=== PATIENT | female | born 1945 | race Caucasian/White ===

== ENCOUNTER → 2016-11-23 | Outpatient (CLI) | payer MEDICARE, OTHER ==
[~2016-11-23] MED LIST: BUPR300T PO; CIPR500T4 PO; FLUO20CA25 PO; LANS15CA PO; LORA0.5T PO; MELA1TAB11 PO; METR500T21 PO; SIMV40TA4 PO
--- NOTE | 2016-11-25 13:54 | Diagnostic Imaging Report ---
Bilateral screening mammogram. The current study was also evaluated with a Computer Aided Detection (CAD) system. INDICATION: Screening. No current complaints stated on the questionnaire. COMPARISON: 06/05/2014. FINDINGS: The breasts are composed of heterogeneously dense parenchyma which may decrease mammographic sensitivity. There is no mass, architectural distortion, or suspicious microcalcification. Allowing for technique and positional differences, no suspicious change is seen. IMPRESSION: Dense breasts with no definite change. ACR BI-RADS Category 2: Benign findings. Result letter will be mailed to the patient. Note: At least 10% of breast cancer is not imaged by mammography. Dictated by: Dictated on workstation # [id number]
== END ==
LOC: RAD 09:40
PROVIDERS: ATTEND Nurse Practitioner Family
DX: Z12.31 Encounter for screening mammogram for malignant neoplasm of breast (principal)

== ENCOUNTER → 2016-11-24 | Outpatient (CLI) | payer MEDICARE, OTHER ==
--- NOTE | 2016-11-24 10:43 | Diagnostic Imaging Report ---
PROCEDURE: US Gallbladder. TECHNIQUE: Multiple real-time grayscale images were obtained over the right upper quadrant in various projections. INDICATION: Right upper quadrant pain. FINDINGS: The pancreas is largely obscured. The liver is fairly homogeneous with no focal lesion. There is hepatopetal flow in the portal vein seen. The gallbladder demonstrates no stones or wall thickening. No pericholecystic fluid is seen. Sonographic Bronson's sign is reportedly negative. There is no fluid collection in the upper right abdomen. The CBD is 4 mm in caliber. IMPRESSION: Unremarkable exam. Dictated by: Dictated on workstation # [id number]
== END ==
LOC: RAD 08:59
PROVIDERS: ATTEND Nurse Practitioner Family
DX: R10.11 Right upper quadrant pain (principal); R19.7 Diarrhea, unspecified
CPT/HCPCS: 76705

== ENCOUNTER → 2017-06-29 | Outpatient (CLI) | payer MEDICARE, OTHER ==
--- NOTE | 2017-06-29 13:35 | Diagnostic Imaging Report ---
PROCEDURE: MRI left upper extremity without contrast. TECHNIQUE: Multiplanar, multisequence non contrast-enhanced MRI of the left upper extremity was accomplished. INDICATION: Shoulder pain. COMPARISON: There are no previous studies available for comparison. FINDINGS: On the coronal T2 fat-saturated series, there is a small area of abnormal signal along the anterior-most insertion of the rotator cuff. This does suggest a small rim rent tear. The supraspinatus muscle itself is not retracted or bunched, however. There is hypertrophy of the acromioclavicular joint, but there does not appear to be any significant narrowing of the outlet for the supraspinatus muscle. The labrum is thinned anteriorly and may be torn on a degenerative basis. There is no acute labral tear identified. The biceps tendon and the subscapularis tendon are intact. There is no abnormal signal arising from the osseous structures to suggest bone edema or a fracture. There is mild cystic degenerative disease of the greater tuberosity. There is a small joint effusion present. There is also a collection of fluid in the bursa anterior to the scapula. This fluid collection measures approximately 1.6 x 2.2 x 4.0 CM in maximum longitudinal AP and transverse dimensions. There are also two fairly well-circumscribed defects within the medial-most portion of the fluid. These could represent small calcifications. IMPRESSION: 1. There is a small rim rent tear of the anterior insertion of the rotator cuff. The supraspinatus muscle itself is not retracted or bunched. 2. There is mild hypertrophy of the acromioclavicular joint, but there is no narrowing of the outlet for the supraspinatus muscle. 3. The labrum is thinned and most likely torn on a degenerative basis. 4. There is no acute bony abnormality identified. 5. There is a small joint effusion, and there is fluid in the bursa anterior to the shoulder joint. There may be a few small calcifications within the fluid collection as well. Dictated by: Dictated on workstation # [id number]
== END ==
LOC: RAD 08:12
PROVIDERS: ATTEND Orthopaedic Surgery
DX: M25.512 Pain in left shoulder (principal)
CPT/HCPCS: 73221

== ENCOUNTER 2017-12-15 10:55 | Outpatient (RCR) | payer MEDICARE, OTHER | END 2017-12-15 13:55 | disposition home or self-care (01) | PROVIDERS: ATTEND Orthopaedic Surgery | DX: Z47.89 Encounter for other orthopedic aftercare (principal) ==

== ENCOUNTER 2018-07-15 10:23 | Emergency (ER) | payer MEDICARE, OTHER ==
[~2018-07-15] VITALS: Ht 157.5 cm; Wt 78.9 kg
[2018-07-15 11:19] LABS: BILIRUBIN,URINE NEGATIVE (NEGATIVE); CLARITY,URINE SLIGHTLY CLOUDY; COLOR,URINE YELLOW; GLUCOSE, URINE (UA) NEGATIVE (NEGATIVE); KETONES,URINE NEGATIVE (NEGATIVE); LEUKOCYTE ESTERASE ,URINE 2+ (NEGATIVE); NITRITE,URINE NEGATIVE (NEGATIVE); PH,URINE 8 (5-9); PROTEIN,URINE NEGATIVE (NEGATIVE); UROBILINOGEN,URINE NORMAL (NORMAL)
[2018-07-15] MEDS ORDERED: KETOROLAC 30 MG/ML VIAL IM ONE (11:30)
[2018-07-15 11:39] LABS: AMORPHOUS SEDIMENT,UR MOD AMOR PHOSPHATE /LPF; BACTERIA,URINE MODERATE /HPF; RBC,URINE RARE /HPF
[2018-07-15] MEDS ORDERED: ONDANSETRON 4 MG/2 ML (SDV) Z0FRAN IVP ONE (11:45)
--- NOTE | 2018-07-15 11:52 | ED Back Pain ---
General Chief Complaint: Back Problems Stated Complaint: POSS KIDNEY STONE,L SIDE ABD PAIN STARTED 2HRS AGO Nursing Triage Note: Patient presents to ER via wheelchair with complaint of left flank pain that began suddenly approximately 2 and 1/2 hours ago. Patient is also complaining of nausea. Patient took a tramadol approximately 45 minutes ago and states it is helping to relieve the pain. Nursing Sepsis Screen: No Definite Risk Source of Information: Patient, Spouse Exam Limitations: No Limitations History of Present Illness Date Seen by Provider: Jul 15, 2018 Time Seen by Provider: 11:37 Initial Comments The patient presents to the ER by private conveyance with her spouse and chief complaint that this morning around 8:30 she started to have severe, gripping, sharp pain near her left kidney radiating down her left flank and into her left groin all the way to her urethra. She's not having any dysuria prior to that. She says it's causing a little nausea but she's not vomited yet. She is never had a kidney stone before. Having regular bowel movements. Her had kidney stones before she says this might of her of his episodes. She took a tramadol which briefly helped with the pain. She's had her appendix and uterus surgically removed. She has no shortness of breath, cough or worsening pain on deep inspiration. Allergies and Home Medications Allergies Coded Allergies: No Known Drug Allergies (Unverified , 01/10/14) Home Medications Bupropion Hcl 300 Mg Tab.sr.24h, 1 TAB PO DAILY, (Reported) Ciprofloxacin HCl 500 Mg Tablet, 500 MG PO BID Prescribed by: KAYLEEN RUELAS on 03/28/162108 Fluoxetine Hcl 20 Mg Capsule, 1 EACH PO DAILY, (Reported) Lansoprazole 15 Mg Capsule.dr, 15 MG PO DAILY, (Reported) Lorazepam 0.5 Mg Tablet, 0.5 MG PO DAILY, (Reported) Metronidazole 500 Mg Tablet, 500 MG PO BID Prescribed by: KAYLEEN RUELAS on 03/28/162108 Pyridoxine/Melatonin 1 Tab Tablet, 1 TAB PO DAILY, (Reported) Simvastatin 40 Mg Tablet, 40 MG PO DAILY, (Reported) Patient Home Medication List Home Medication List Reviewed: Yes Review of Systems Constitutional: No chills, No diaphoresis EENTM: No ear discharge, No hearing loss Respiratory: No cough, No dyspnea on exertion Cardiovascular: No chest pain, No palpitations Gastrointestinal: see HPI, nausea; No vomiting Genitourinary: No decreased output, No discharge, No dysuria Musculoskeletal: No back pain, No joint pain Past Tnkrxau-Solhhq-Fnektj Hx Patient Social History Alcohol Use: Denies Use Recreational Drug Use: No Smoking Status: Never a Smoker 2nd Hand Smoke Exposure: No Recent Foreign Travel: No Contact w/Someone Who Travel: No Recent Infectious Disease Expo: No Recent Hopitalizations: No Seasonal Allergies Seasonal Allergies: No Past Medical History Surgeries: Yes (cataracts, carpal tunnel, D & C) Appendectomy, Hysterectomy, Tonsillectomy Respiratory: No Cardiac: No Neurological: No [employer] History: Hysterectomy Sexually Transmitted Disease: No Genitourinary: Yes Kidney Stones Gastrointestinal: No Musculoskeletal: No Endocrine: No HEENT: Yes Cataract Cancer: No Psychosocial: No Integumentary: No Blood Disorders: No Family Medical History No Pertinent Family Hx Physical Exam Vital Signs Vital Signs - First Documented 07/15/18 10:53 Temp 97.7 Pulse 76 Resp 16 B/P (MAP) 134/88 (103) O2 Delivery Room Air Capillary Refill : Less Than 3 Seconds Height, Weight, BMI Height: 5'2.00" Weight: 174lbs. oz. 78.233323cj; BMI Method:Stated General Appearance: Anxious, Moderate Distress HEENT: PERRL/EOMI, Pharynx Normal, Moist Mucous Membranes Cardiovascular: Regular Rate, Rhythm, Normal Peripheral Pulses Respiratory: Chest Non Tender, Lungs Clear, No Accessory Muscle Use, No Respiratory Distress Gastrointestinal: Normal Bowel Sounds, Non Tender, Soft Back: CVA Tenderness (L) (tender to percussion); No Vertebral Tenderness Extremity: Normal Capillary Refill, Non Tender Neurologic/Psychiatric: Alert, Oriented x3 Progress/Results/Core Measures Results/Orders Lab Results Laboratory Tests Test 07/15/18 11:08 07/15/18 11:56 Range/Units Urine Color YELLOW Urine Clarity SLIGHTLY CLOUDY Urine pH 8 5-9 Urine Specific [place] 1.010 L 1.016-1.022 Urine Protein NEGATIVE NEGATIVE Urine Glucose (UA) NEGATIVE NEGATIVE Urine Ketones NEGATIVE NEGATIVE Urine Nitrite NEGATIVE NEGATIVE Urine Bilirubin NEGATIVE NEGATIVE Urine Urobilinogen NORMAL NORMAL MG/DL Urine Leukocyte Esterase 2+ H NEGATIVE Urine RBC (Auto) 2+ H NEGATIVE Urine RBC RARE /HPF Urine WBC 2-5 /HPF Urine Squamous Epithelial Cells 5-10 /HPF Urine Crystals NONE /LPF Urine Amorphous Sediment MOD DAMION PHOSPHATE H /LPF Urine Bacteria MODERATE H /HPF Urine Casts NONE /LPF Urine Mucus NEGATIVE /LPF Urine Culture Indicated NO White Blood Count 5.9 4.3-11.0 10^3/uL Red Blood Count 4.45 4.35-5.85 10^6/uL Hemoglobin 13.4 11.5-16.0 G/DL Hematocrit 39 35-52 % Mean Corpuscular Volume 89 80-99 FL Mean Corpuscular Hemoglobin 30 25-34 PG Mean Corpuscular Hemoglobin Concent 34 32-36 G/DL Red Cell Distribution Width 13.2 10.0-14.5 % Platelet Count 234 130-400 10^3/uL Mean Platelet Volume 9.0 7.4-10.4 FL Neutrophils (%) (Auto) 71 42-75 % Lymphocytes (%) (Auto) 19 12-44 % Monocytes (%) (Auto) 9 0-12 % Eosinophils (%) (Auto) 1 0-10 % Basophils (%) (Auto) 1 0-10 % Neutrophils # (Auto) 4.2 1.8-7.8 X 10^3 Lymphocytes # (Auto) 1.1 1.0-4.0 X 10^3 Monocytes # (Auto) 0.5 0.0-1.0 X 10^3 Eosinophils # (Auto) 0.1 0.0-0.3 10^3/uL Basophils # (Auto) 0.0 0.0-0.1 10^3/uL Sodium Level 139 135-145 MMOL/L Potassium Level 4.4 3.6-5.0 MMOL/L Chloride Level 108 H 98-107 MMOL/L Carbon Dioxide Level 18 L 21-32 MMOL/L Anion Gap 13 5-14 MMOL/L Blood Urea Nitrogen 22 H 7-18 MG/DL Creatinine 1.19 0.60-1.30 MG/DL Estimat Glomerular Filtration Rate 45 BUN/Creatinine Ratio 18 Glucose Level 134 H 70-105 MG/DL Calcium Level 9.6 8.5-10.1 MG/DL Corrected Calcium 9.2 8.5-10.1 MG/DL Total Bilirubin 0.4 0.1-1.0 MG/DL Aspartate Amino Transf (AST/SGOT) 16 5-34 U/L Alanine Aminotransferase (ALT/SGPT) 22 0-55 U/L Alkaline Phosphatase 115 40-136 U/L Total Protein 6.8 6.4-8.2 GM/DL Albumin 4.5 3.2-4.5 GM/DL My Orders Orders - LAYNE HICKS Ua Culture If Indicated (07/15/18 10:27) Ketorolac Injection (Toradol Injection) (07/15/18 11:30) Ct Abd/Pelvis Wo(Kidney Stone) (07/15/18 11:43) Cbc With Automated Diff (07/15/18 11:43) Comprehensive Metabolic Panel (07/15/18 11:43) Ondansetron Injection (Zofran Injectio (07/15/18 11:45) Medications Given in ED Current Medications Medications Dose Ordered Sig/Yosef Route Start Time Stop Time Status Last Admin Dose Admin Ketorolac Tromethamine 30 mg ONCE ONCE IM 07/15/18 11:30 07/15/18 11:31 DC 07/15/18 11:26 30 MG Ondansetron HCl 4 mg ONCE ONCE IVP 07/15/18 11:45 07/15/18 11:48 DC 07/15/18 12:00 4 MG Vital Signs/I&O 07/15/18 10:53 Temp 97.7 Pulse 76 Resp 16 B/P (MAP) 134/88 (103) O2 Delivery Room Air Blood Pressure Mean: 103 Progress Progress Note : Time: 11:51 Progress Note Fully rare blood seen in her urinalysis but this doesn't rule out a kidney stone. We'll get a CT without contrast of her abdomen but we'll add some labs. Vitals were aseptic. 10 minutes after receiving the Toradol she's starting to feel the edge of her pain come off. We'll give her some Zofran as well. Diagnostic Imaging Diagonstic Imaging: CT (without contrast) Plain Films/CT/US/NM/MRI: abdomen, pelvis Comments VIA [facility]. [place], [place] NAME: ADIEL ALEXANDER MED REC#: [id number] PT STATUS: REG ER : 1945 PHYSICIAN: LAYNE HICKS MD ADMIT DATE: 07/15/18/ER Draft Date of Exam:07/15/18 CT ABD/PELVIS WO(KIDNEY STONE) PROCEDURE: CT urinary tract, rule out kidney stone. TECHNIQUE: Multiple contiguous axial images were obtained through the abdomen and pelvis without the use of intravenous contrast. INDICATION: Left flank pain. Comparison with 03/28/2016. FINDINGS: Lung bases are clear. Large cyst is again noted off the upper pole of left kidney measuring approximately 10 cm. There is also a 7 cm cyst again noted off the lower pole of the left kidney. There is moderate hydronephrosis of the left kidney with dilated left ureter. There is a 3 mm calcification in the distal left ureter at the trigone of the bladder. The bladder is decompressed. The right kidney and ureter appear normal. The liver and gallbladder are normal. Bile ducts are not dilated. The pancreas and spleen are normal. The adrenal glands are normal. Stomach and small bowel are nondistended. Colon shows normal stool and gas pattern. There is diverticulosis of the sigmoid colon without evidence of diverticulitis. The uterus is absent. There are no pelvic masses. No free air or free fluid. No bony lesions. IMPRESSION: 1. Moderate hydronephrosis of left kidney and ureter with 3 mm calculus in the distal left ureter at the bladder. 2. Large cyst benign in nature of left kidney again noted unchanged. Dictated on workstation # [id number] Dict: 07/15/18 1223 Trans: 07/15/18 1235 [facility] [id number] Interpreted by: YONG CANELA MD Electronically signed by: Reviewed: Reviewed by Me Departure Impression Primary Impression: Ureteral calculus, left Disposition: 01 HOME, SELF-CARE Condition: Improved Departure-Patient Inst. Decision time for Depature: 13:05 Referrals: VELVET CORLEY MD (PCP/Family) Primary Care Physician BALDEMAR KRUGER MD Add. Discharge Instructions: Drink lots of fluids. Caffeine is okay. Use ibuprofen 800 mg every 8 hours in addition to hydrocodone one to 2 tablets every 6 hours as needed for pain. If you have nausea take one tablet of Zofran every [address] under tongue as needed. Use the Flomax 1 tablet every night until you've passed the stone. Use the Keflex one capsule twice a day for the next week. If you're not seeing some improvement by tomorrow or the next day follow-up with the urologist of your choice. All discharge instructions reviewed with patient and/or family. Voiced understanding. Scripts Ondansetron (Ondansetron Odt) 4 Mg Tab.rapdis 4 MG PO Q6H PRN for NAUSEA/VOMITING, #8 TAB 0 Refills Prov: LAYNE HICKS 07/15/18 Tamsulosin HCl (Flomax) 0.4 Mg Cap 0.4 MG PO HS for 7 Days, #7 CAP 0 Refills Prov: LAYNE HICKS 07/15/18 Hydrocodone Bit/Acetaminophen (Hydrocodone/Acetaminophen 5/325mg Tablet) 1 Tab Tab 1-2 EACH PO Q6H PRN for BREAKTHROUGH PAIN, #20 TAB 0 Refills Prov: LAYNE HICKS 07/15/18 Cephalexin (Cephalexin) 500 Mg Tablet 500 MG PO BID for 7 Days, #14 TAB 0 Refills Prov: LAYNE HICKS 07/15/18 Copy Copies To 1: BALDEMAR KRUGER MD, TITUS J Jul 15, 2018 11:52
[2018-07-15 12:08] LABS: BASOPHILS % (AUTO) 1 % (0-10); EOSINOPHILS # (AUTO) 0.1 10^3/uL (0.0-0.3); EOSINOPHILS % (AUTO) 1 % (0-10); HEMATOCRIT 39 % (35-52); HEMOGLOBIN 13.4 G/DL (11.5-16.0); LYMPHOCYTES # (AUTO) 1.1 X 10^3 (1.0-4.0); LYMPHOCYTES % (AUTO) 19 % (12-44); MEAN CORPUSCULAR HEMOGLOBIN 30 PG (25-34); MEAN CORPUSCULAR HGB CONC 34 G/DL (32-36); MEAN CORPUSCULAR VOLUME 89 FL (80-99); MONOCYTES # (AUTO) 0.5 X 10^3 (0.0-1.0); MONOCYTES % (AUTO) 9 % (0-12); NEUTROPHILS # (AUTO) 4.2 X 10^3 (1.8-7.8); NEUTROPHILS % (AUTO) 71 % (42-75); PLATELET COUNT 234 10^3/uL (130-400); RED BLOOD COUNT 4.45 10^6/uL (4.35-5.85); RED CELL DISTRIBUTION WIDTH 13.2 % (10.0-14.5); WHITE BLOOD COUNT 5.9 10^3/uL (4.3-11.0)
[2018-07-15 12:24] LABS: ALBUMIN 4.5 GM/DL (3.2-4.5); BILIRUBIN,TOTAL 0.4 MG/DL (0.1-1.0); CALCIUM 9.6 MG/DL (8.5-10.1); CREATININE SERUM 1.19 MG/DL (0.60-1.30); POTASSIUM 4.4 MMOL/L (3.6-5.0); TOTAL PROTEIN 6.8 GM/DL (6.4-8.2)
--- NOTE | 2018-07-15 12:35 | Diagnostic Imaging Report ---
PROCEDURE: CT urinary tract, rule out kidney stone. TECHNIQUE: Multiple contiguous axial images were obtained through the abdomen and pelvis without the use of intravenous contrast. INDICATION: Left flank pain. Comparison with 03/28/2016. FINDINGS: Lung bases are clear. Large cyst is again noted off the upper pole of left kidney measuring approximately 10 cm. There is also a 7 cm cyst again noted off the lower pole of the left kidney. There is moderate hydronephrosis of the left kidney with dilated left ureter. There is a 3 mm calcification in the distal left ureter at the trigone of the bladder. The bladder is decompressed. The right kidney and ureter appear normal. The liver and gallbladder are normal. Bile ducts are not dilated. The pancreas and spleen are normal. The adrenal glands are normal. Stomach and small bowel are nondistended. Colon shows normal stool and gas pattern. There is diverticulosis of the sigmoid colon without evidence of diverticulitis. The uterus is absent. There are no pelvic masses. No free air or free fluid. No bony lesions. IMPRESSION: 1. Moderate hydronephrosis of left kidney and ureter with 3 mm calculus in the distal left ureter at the bladder. 2. Large cyst benign in nature of left kidney again noted unchanged. Dictated by: Dictated on workstation # [id number]
[2018-07-15] MEDS ORDERED: ONDA4TAB11 PO (13:07)
[2018-07-15] MEDS ORDERED: TAMS0.4C98 PO (13:07)
[2018-07-15] MEDS ORDERED: CEPH500T PO (13:07)
[2018-07-15] MEDS ORDERED: ACHD5005 PO (13:07)
[2018-07-15 14:20] VITALS: BP 139/84
--- NOTE | 2018-07-15 14:32 | Diagnostic Imaging Report ---
INDICATION: Abdominal pain. COMPARISON: None. FINDINGS: Two views of the abdomen demonstrate mild constipation without obstruction or ileus. There is no free air. Osseous structures are normal. No abnormal calcifications are seen. IMPRESSION: Mild constipation. Dictated by: Dictated on workstation # [id number]
== END 2018-07-15 14:22 | disposition home or self-care (01) ==
LOC: EDUNIT# 10:23 → ER 10:25
DX: N13.2 Hydronephrosis with renal and ureteral calculous obstruction (principal); Z90.89 Acquired absence of other organs; Z90.710 Acquired absence of both cervix and uterus; Z87.442 Personal history of urinary calculi
CPT/HCPCS: 36415; 74018; 74176; 80053; 81000; 85025; 96372; 96374

== ENCOUNTER → 2019-01-24 | Outpatient (CLI) | payer MEDICARE, OTHER ==
[~2019-01-24] MED LIST changes: +ACHD5005 PO; +CEPH500T PO; +METR-145 PO; -METR500T21 PO; +ONDA4TAB11 PO; +TAMS0.4C98 PO
--- NOTE | 2019-01-24 10:27 | Diagnostic Imaging Report ---
INDICATION: Worsening cough FINDINGS: No focal infiltrate, effusion or pneumothorax is found. There is no failure pattern. There is no free air beneath the diaphragms. IMPRESSION: No acute appearing abnormality Dictated by: Dictated on workstation # [id number]
== END ==
LOC: RAD 10:03
PROVIDERS: ATTEND Nurse Practitioner Family
DX: R05 Cough (principal)
CPT/HCPCS: 71046

== ENCOUNTER → 2019-11-11 | Outpatient (CLI) | payer MEDICARE, OTHER ==
--- NOTE | 2019-11-12 13:09 | Diagnostic Imaging Report ---
INDICATION: Routine screening. COMPARISON: 11/23/2016 and 06/05/2014. TECHNIQUE: 2D and 3D bilateral screening mammography was performed with CAD. FINDINGS: Scattered fibroglandular densities are identified bilaterally. The overall parenchymal pattern is stable. No mass or malignant appearing microcalcifications are seen. There are benign calcifications. The axillae are unremarkable. IMPRESSION: No mammographic features suspicious for malignancy are identified. ACR BI-RADS Category 2: Benign findings. Result letter will be mailed to the patient. Note: At least 10% of breast cancer is not imaged by mammography. Dictated by: Dictated on workstation # [id number]
== END ==
LOC: RAD 14:36
PROVIDERS: ATTEND Family Medicine
DX: Z12.31 Encounter for screening mammogram for malignant neoplasm of breast (principal)
CPT/HCPCS: 77067

== ENCOUNTER → 2021-07-13 | Outpatient (CLI) | payer MEDICARE, OTHER ==
[~2021-07-13] MED LIST changes: -CIPR500T4 PO; +CIPR500T5 PO; -TAMS0.4C98 PO; +TMSL.4C PO
--- NOTE | 2021-07-13 12:46 | Diagnostic Imaging Report ---
Indication: Routine screening. Comparison is made with prior mammogram 11/11/2019 and 11/23/2016. 2-D and 3-D bilateral screening mammography was performed with CAD. Scattered fibroglandular densities are identified bilaterally. The parenchymal pattern is stable. No mass or malignant-appearing microcalcifications are seen. There are occasional benign calcifications. Axillae are unremarkable. IMPRESSION: BI-RADS Category 2 No mammographic features suspicious for malignancy are identified. ACR BI-RADS Category 2: Benign findings. Result letter will be mailed to the patient. Note: At least 10% of breast cancer is not imaged by mammography. Dictated by: Dictated on workstation # [id number]
== END ==
LOC: RAD 10:45
PROVIDERS: ATTEND Nurse Practitioner Family
DX: Z12.31 Encounter for screening mammogram for malignant neoplasm of breast (principal)
CPT/HCPCS: 77063; 77067

== ENCOUNTER → 2022-07-19 | Outpatient (CLI) | payer MEDICARE, OTHER ==
--- NOTE | 2022-07-19 14:26 | Diagnostic Imaging Report ---
Indication: Routine screening. Comparison is made with prior mammogram 07/13/2021 and 11/11/2019. 2-D and 3-D bilateral screening mammography was performed with CAD. CAD is utilized. The current study was also evaluated with a Computer Aided Detection (CAD) system. Scattered fibroglandular densities are identified bilaterally. No mass or malignant-appearing microcalcifications are seen. Axillae are unremarkable. IMPRESSION: BI-RADS Category 1 No mammographic features suspicious for malignancy are identified. ACR BI-RADS Category 1: Negative. Result letter will be mailed to the patient. Note: At least 10% of breast cancer is not imaged by mammography. Dictated by: Dictated on workstation # [id number]
--- NOTE | 2022-07-19 15:44 | Diagnostic Imaging Report ---
INDICATION: Postmenopausal state COMPARISON: 08/09/2001 FINDINGS: AP Spine L1-L4: [BMD (g/cm2): 0.841] [T-Score: -3.0] [Z-Score: -1.4] [BMD Previous: 0.969] [BMD % Change: -13.2]* LT Hip Neck: [BMD (g/cm2): 0.705] [T-Score: -2.4] [Z-Score: -0.6] LT Hip Total: [BMD (g/cm2):0.840] [T-Score:-1.3] [Z-Score: 0.3] [BMD Previous: 0.889] [BMD % Change: -5.5] RT Hip Neck: [BMD (g/cm2):0.718] [T-Score:-2.3] [Z-Score:-0.5] RT Hip Total: [BMD (g/cm2):0.801] [T-score:-1.6] [Z-Score:-0.1] [BMD Previous:0.823] [BMD % Change:-2.7] *Indicates significant change from prior examination based on 95% confidence level. World Health Organization criteria for BMD interpretation classify patients as Normal (T-score at or above -1.0), Osteopenic (T-score between -1.0 and -2.5) or Osteoporotic (T-score at or below -2.5). LIMITATIONS AND MODIFICATION: None. FRACTURE RISK (FRAX SCORE): FRAX score is not calculated given underlying osteoporosis. IMPRESSION: 1. Osteoporosis. 2. Bone mineral density within the lumbar spine has significantly decreased since the prior examination. However, prior examination was from 2000. 3. See below National Osteoporosis Foundation guidelines on when to potentially initiate pharmacologic therapy. Based on the National Osteoporosis Foundation Guidelines, pharmacologic treatment should be initiated in any of the following, unless clinical conditions suggest otherwise: * Any patient with prior fragility fracture of the hip or vertebrae. A spine fracture indicates 5X risk for subsequent spine fracture and 2X risk for subsequent hip fracture. * Osteoporosis (T-score <-2.5). * Postmenopausal women and men age 50 and older with low bone mass/osteopenia (T-score between -1.0 and -2.5) by DXA and 10-year major osteoporotic fracture greater than 20% or a 10-year probability of hip fracture greater than 3%. These fracture risks are supplied above in the FRAX score, if applicable. * Clinician judgement and/or patient preferences may indicate treatment for people with 10-year fracture probabilities above or below these levels. Dictated by: Dictated on workstation # [id number]
== END ==
LOC: RAD 10:23
PROVIDERS: ATTEND Family Medicine
DX: Z12.31 Encounter for screening mammogram for malignant neoplasm of breast (principal); M81.0 Age-related osteoporosis without current pathological fracture; Z78.0 Asymptomatic menopausal state
CPT/HCPCS: 77063; 77067; 77080

== ENCOUNTER → 2023-09-08 | Outpatient (CLI) | payer MEDICARE, OTHER ==
--- NOTE | 2023-09-08 13:10 | Diagnostic Imaging Report ---
INDICATION: Routine screening. Comparison is made with prior mammogram from 07/19/2022 and 07/13/2021. 2-D and 3-D bilateral screening mammography was performed with CAD. Scattered fibroglandular densities are identified bilaterally. The parenchymal pattern is stable. No mass or malignant-appearing microcalcifications are identified. Axillae are unremarkable. There are benign calcifications. IMPRESSION: No mammographic features suspicious for malignancy are identified. ACR BI-RADS Category 2: Benign findings. Result letter will be mailed to the patient. Note: At least 10% of breast cancer is not imaged by mammography. BI-RADS Category 2 Dictated by: Dictated on workstation # [id number]
== END ==
LOC: RAD 10:04
PROVIDERS: ATTEND Family Medicine
DX: Z12.31 Encounter for screening mammogram for malignant neoplasm of breast (principal)
CPT/HCPCS: 77063; 77067